=== PATIENT | male | born 1975 | race Caucasian/White ===

== ENCOUNTER 2018-09-29 18:10 | Outpatient (CLI) | payer OTHER ==
--- NOTE | 2018-09-30 09:22 | MRI Report ---
Reason: LOCALIZED EDEMA, SYNOVIAL CYST OF [place] SPACE Procedure Date: 09/29/2018 Accession Number: [id number] / [id number] Procedure: MRI - Knee LT W/O CPT Code: FULL RESULT: EXAM: LEFT KNEE MRI WITHOUT CONTRAST EXAM DATE: 09/29/2018 07:02 PM. CLINICAL HISTORY: LOCALIZED EDEMA, SYNOVIAL CYST OF [place] SP[place]. COMPARISON: None. TECHNIQUE: Multiplanar, multisequence T1-weighted and fluid-sensitive sequences of the knee without contrast. Other: None. FINDINGS: Cruciate ligaments: The anterior and posterior crucial he was very intact. Medial meniscus: Small amount of intrasubstance degeneration. No tear identified. Lateral meniscus: Small amount of intrasubstance degeneration. Thickening and heterogenous signal at the root of the anterior horn. Cystic structure associated with the root of the anterior horn measuring 1.6 x 1.7 x 1.2 cm containing low signal as well as small ossified bodies. Collateral ligaments: The medial and fibular collateral units appear intact. Bones and articular surfaces: Severe cartilage thinning, irregularity and fissuring throughout the weightbearing medial femoral condyle. Mild coarsening at the posterior aspect of the lateral femoral condyle. Patellofemoral compartment without significant defect. Loose body within the suprapatellar recess that measures 2.1 x 0.9 x 1.7 cm. Small joint effusion. Extensor mechanism: The patellar tendon and quadriceps insertion appear intact. IMPRESSION: 1. Ill-defined complex tear and degeneration at the root of the anterolateral meniscus with lobulated cyst that appears to contain a cluster of small calcified and ossified bodies measuring up to 0.6 cm. Overall dimensions 2.1 x 0.9 x 1.7 cm. 2. Severe cartilage loss and subchondral bone changes at the lateral femoral condyle. 3. Suprapatellar loose body measuring up to 2.1 cm. RADIA MUSCULOSKELETAL RADIOLOGY SECTION
== END 2018-09-29 18:11 | disposition home or self-care (01) ==
LOC: DI 18:10
PROVIDERS: ATTEND Physician Assistant
DX: S83.272A Complex tear of lateral meniscus, current injury, left knee, initial encounter (principal); M25.862 Other specified joint disorders, left knee; M23.92 Unspecified internal derangement of left knee; M23.42 Loose body in knee, left knee; M89.9 Disorder of bone, unspecified

== ENCOUNTER 2023-04-16 08:44 | Outpatient (CLI) | payer OTHER ==
--- NOTE | 2023-04-16 09:11 | Sleep Patient Instructions ---
Sleep Center Visit Summary - Patient Visit Information Reason for Visit: Initial consult for evaluation of sleep disordered breathing and other sleep issues. - Patient Instructions Instructions Attached: Sleep Study, Sleep Clinic Visit, Sleep Study Home Monitor Additional Instructions: You will be completing a sleep study, either an in-lab polysomnography (PSG) or home sleep study (HST). You will follow-up in the sleep care office after the sleep study is completed to hear the results and talk about therapy, if needed. You will be called by our office staff to schedule this appointment, but you may contact us with any questions. - Clinic Information Contact: [facility] [address] [place] [address] [email or web address] T: [phone]
--- NOTE | 2023-04-16 09:15 | SLEEP CARE CONSULTATION ---
Information from patient questionnaire entered by Burke Smith. I have reviewed and concur with the information entered by Burke Smith. This document represents the service I personally performed and the decisions made by me, Adamaris Nelson ARNP. History of Present Illness Service Date and Time: 04/16/2023 0844 Reason for Visit: New patient Chief Complaint: reports: Unrefreshed sleep, Excessive daytime sleepiness Date of Onset: 3 years Usual bedtime: 10-1030PM Time it takes to fall asleep: 20-60MIN, will sometimes take melatonin to help get to sleep Snores at night: Yes Observed to quit breathing while asleep: No Sleeps alone due to snoring: No Number of times waking at night: 2 Reasons for waking at night: reports: Choking, Snoring, Gasping for air, Bathroom Toss, Turn, or Twitch while sleeping: No Recalls having dreams: No Usually gets out of bed at: 540AM; weekends 0800 Feels refreshed in the morning: No Morning headache: No Sleepy or fatigued during the day: Yes Ever fallen asleep while driving: No Takes day naps: No Dreams during day naps: No Prior sleep studies: No Additional HPI information: I had the pleasure of seeing DONNA MAHMOOD today regarding the possibility of him having a sleep disorder. His current complaints are unrefreshed sleep and excessive daytimes sleepiness. He states for the last few years he has noticed daytime fatigue. He knows he snores. He has woke up gasping for air, feeling like he is choking and snoring. He does not remember dreaming and wakes up feeling tired. - Parasomnia Symptoms Ever been unable to move upon waking from sleep: Yes (nothing recent) Walks in sleep: No Talks in sleep: No Ever acted out dreams in sleep: No Ever felt weak in the knees when startled or emotional: No Bothered by creepy, crawly, restless sensations in legs: No Problems with memory or concentration: Yes (both, memory worse) Subjective Initial [place] Sleepiness Scale score: 9 (04/16/23) Past Medical History Past Medical History: reports: Other (2018, L knee scope/procedure) Social History The patient's occupation is a AM. Patient is and lives in [place]. Have you smoked in the past 12 months: Yes (vaping) Years of smokin Quit date: 2016 Alcohol use: Yes Alcohol amount and frequency: 6-12 PACK BEER ON WEEKENDS Caffeine use: Yes Caffeine amount and frequency: HALF POT COFFEE every day Family History Family history of sleep disordered breathing: Yes Family Hx Sleep Apnea: Mother: Snoring, Grandparent: Snoring Allergies and Home Medications Known drug allergies: No Drug allergies reviewed: Yes Home medication list reviewed: Yes (no daily medications) Allergy and home medication list: Allergies No Known Drug Allergies Allergy (Verified 04/15/23 09:15) Review of Systems Cardiovascular: denies: high blood pressure Gastrointestinal: reports: heartburn Neurological: denies: headaches, head trauma Psychiatric: reports: anxiety. denies: depression Ear/Nose/Throat: reports: dry mouth/throat. denies: injury to nose, t onsillectomy Endocrine: reports: sluggishness, too hot or cold Musculoskeletal: reports: joint pain, back pain Immunologic: reports: sneezing, itching, allergies to food or environment (sometimes spring allergies) Physical Exam Vital signs obtained and entered by: BURKE Brasher MA Blood Pressure: 136/82 (LEFT ARM) Cuff size: regular Heart Rate: 81 O2 Saturation: 98 Height: 6 ft 1 in Weight: 203 lb 3.2 oz Body Mass Index: 26.8 BMI Classification: Overweight Neck circumference: 15.5 Mouth and throat: narrow oropharynx Soft palate: long Hard palate: arched Uvula: normal Uvula visualization: 100% Mallampati Class I Tongue: enlarged in size with teeth saldana on lateral edges Tonsils: 1+ Neck: normal w/o lymphadenopathy or thyromegaly Heart: regular rate and rhythm Lungs: clear bilaterally Impression and Plan 1. Suspected Obstructive Sleep Apnea-Hypopnea Syndrome, as suggested by a history of loud and irregular snoring, gasping or choking in sleep, unrefreshed sleep, cognitive impairment, and excessive daytime sleepiness. Narrow oropharynx and obesity are common predisposing factors for obstructive sleep apnea-hypopnea syndrome. I recommend proceeding to polysomnography to confirm the diagnosis and to assess severity. If the patient has significant sleep disordered breathing, a manual CPAP titration study will also be performed to find the optimal treatment pressure. I informed the patient of what the sleep studies involve and after some discussion, obtained agreement to proceed. The pathophysiology of obstructive sleep apnea-hypopnea syndrome was discussed with the patient and health risks of cardiovascular and cerebrovascular disease if not treated. Risks of drowsy driving discussed in detail and patient advised to avoid long distance driving and to taffy puller at the first sign of drowsiness. Patient agreed to plan. * Schedule polysomnography +- manual CPAP titration study and return in 1-2 weeks after the study to discuss result and initiate therapy. * Avoid long distance driving or driving when feeling sleepy. * Avoid alcohol, sedative and muscle relaxant around bedtime. * Attempt to lose weight. * Review instructions provided by trained office staff on how to prepare for the sleep study. * Return for follow-up after sleep study completed. Counseling Topics: Weight loss health impact Visit Type: In Office Time Spent with Patient (minutes): 32 Provider Statement: I spent 100% of the Face to Face Visit with the patient with greater than 50% spent counseling the patient and coordination of care.
[2023-04-16 09:16] VITALS: BP 136/82
== END 2023-04-16 08:45 | disposition home or self-care (01) ==
LOC: SC 08:44
PROVIDERS: ATTEND Nurse Practitioner Family
DX: R06.83 Snoring (principal); G47.8 Other sleep disorders; G47.10 Hypersomnia, unspecified; E66.3 Overweight; Z68.26 Body mass index [BMI] 26.0-26.9, adult; F17.290 Nicotine dependence, other tobacco product, uncomplicated
CPT/HCPCS: 99203; 99212

== ENCOUNTER 2023-05-18 19:35 | Outpatient (CLI) | payer OTHER | END 2023-05-18 19:36 | disposition home or self-care (01) | LOC: SC 19:35 | PROVIDERS: ATTEND Nurse Practitioner Family | DX: G47.33 Obstructive sleep apnea (adult) (pediatric) (principal) | CPT/HCPCS: 95810 ==

== ENCOUNTER 2023-06-16 09:05 | Outpatient (CLI) | payer OTHER ==
--- NOTE | 2023-06-16 09:27 | Sleep Patient Instructions ---
Sleep Center Visit Summary - Patient Visit Information Reason for Visit: Sleep study followup - Patient Instructions Instructions Attached: CPAP Dc, CPAP Additional Instructions: You are being started on CPAP therapy with pressure setting at 4-15 cmH2O. You will need to call the sleep care office to set up your follow up once you have your APAP machine and we will schedule a visit to check compliance and response to therapy at that time. You may call the office with any concerns about pressure feeling too low or too much for adjustment, if needed. You should contact DME for any questions or concerns about mask or equipment. Please call to schedule a follow up in the sleep care office one month after obtaining new CPAP. - Clinic Information Contact: [facility] [address] [place] [address] [email or web address] T: [phone]
--- NOTE | 2023-06-16 09:32 | SLEEP CARE CONSULTATION ---
Information from patient questionnaire entered by Alee Smith. I have reviewed and concur with the information entered by Aele Smith. This document represents the service I personally performed and the decisions made by me, Adamaris Nelson ARNP. History of Present Illness Service Date and Time: 06/16/2023904 Initial [place] Sleepiness Scale score: 9 (04/16/23) Current [place] Sleepiness Scale score: 11 (06/16/23) Additional HPI information: DONNA MAHMOOD returns for follow up and results of the recently performed polysomnography. His PSG shows moderate obstructive sleep apnea with an average AHI of 23.9 and dayna oxygen saturation of 82%. I explained the pathophysiology behind obstructive sleep apnea. We then spent quite a bit of time discussing different treatment options. For mild obstructive sleep apnea, surgery and oral appliance are alternatives to nasal CPAP therapy but in moderate or severe cases, nasal CPAP is the most effective and reliable treatment. Because apnea is primarily in supine position, then positional management therapy could be effective. Methods discussed such as positioning with pillows, using a T-shirt with tennis balls in the back or commercial products that have a pillow format on back to prevent supine sleep. I reviewed the impact of weight changes on sleep apnea and strongly recommended losing weight. After some discussion, the patient opted to go with the nasal CPAP therapy. Nasal autoCPAP set at 4-15 cmH20 will be ordered with rationale explained. A manual titration study will be ordered if unable to find optimal pressure with office adjustments. I explained how CPAP machine works and what to expect when using the machine. Using CPAP every night in order to get used to it was emphasized. Patient advised to put CPAP mask on before getting into bed so as not to fall asleep without CPAP. To assist acclimation to CPAP use, it could also be used for a short time during day while reading or watching TV. The patient was instructed to call the CPAP supplier to discuss any mechanical problem that may occur. If the mask given is uncomfortable or is difficult to keep on through the night even with adjustment, contact the CPAP supplier as many will replace with another mask style if notified before 30 days. If snoring or perceives is not getting enough air or too much air from the machine, notify this office. Patient counseled not drink alcohol less than 4 hours before bedtime as it can increase snoring and apnea. Patient was cautioned about risks of drowsy driving until sleepiness symptoms resolve. Patient denies drowsy driving. Sleep Study - Results Type of Sleep Study: Polysomnography (COMPLETED 05/18/23) Prior sleep studies: No Polysomnography/Home Sleep Study results: IMPRESSION: The quality of the study is good. The patient had normal sleep efficiency. The sleep architecture was abnormal for sleep fragmentation and reduced amount of time spent in slow wave sleep (N3). Respiratory monitoring showed moderate obstructive sleep apnea-hypopnea (AHI = 23.9) associated with frequent arousals, oxyhemoglobin desaturation and mild hypoxia (dayna oxygen saturation of 82%). The respiratory events occurred almost exclusively during supine sleep (supine AHI = 52.3; non-supine = 1.08). Snore was moderate in intensity. There was no significant periodic leg movement of sleep. Cardiac rhythm was normal sinus rhythm without significant arrhythmia. No abnormal behavior (parasomnia) observed during the night. Allergies and Home Medications Known drug allergies: No Drug allergies reviewed: Yes Home medication list reviewed: Yes (no changes) Allergy and home medication list: Allergies No Known Drug Allergies Allergy (Verified 06/15/23 13:38) Review of Systems Review of systems same as previous: Yes (no changes) Physical Exam Vital signs obtained and entered by: ALEE Brasher MA Blood Pressure: 128/78 (LEFT ARM) Cuff size: regular Heart Rate: 87 O2 Saturation: 98 Height: 6 ft 1 in Weight: 204 lb 6.4 oz Body Mass Index: 26.9 BMI Classification: Overweight Impression and Plan 1. Obstructive Sleep Apnea-Hypopnea Syndrome, moderate, with lowest oxygen saturation of 82%. Obviously this is the cause of the patients symptoms of unrefreshed sleep, and excessive daytime sleepiness. As mentioned above, the patient will be started on nasal autoCPAP therapy with pressure set at 4-15 cmH2 O. A manual titration study will be completed if unable to find optimal treatment pressure with office adjustments. Compliance guidelines also reviewed. A copy of compliance guidelines will be given for reference at check out. Because the apnea is more severe supine, I instructed to avoid sleeping supine using pillow positioning until able to start CPAP use. 2. Hypoxemia, mild, with a dayna oxygen saturation of 82% and 5.8 minutes spent under 90%. His baseline oxygen saturation was normal with an average oxygen saturation of 94%. 3. Overweight, unspecified. Currently patients BMI is 26.9. Obesity increases the risk of apnea, CPAP pressure requirements and overall health risks especially cardiovascular and diabetes. Thus patient is advised to lose weight. * Nasal auto CPAP therapy, pressure at 4-15 cm H2O. * Attempt to lose weight. * Avoid alcohol consumption near bedtime. * Avoid supine sleep until using CPAP. * The patient is again cautioned about driving until sleepiness completely resolves. * Return one month after CPAP obtained. I will assess response to therapy and compliance at that time. Counseling Topics: Weight loss health impact Visit Type: In Office Time Spent with Patient (minutes): 20 Provider Statement: I spent 100% of the Face to Face Visit with the patient with greater than 50% spent counseling the patient and coordination of care.
[2023-06-16 09:33] VITALS: BP 128/78
== END 2023-06-16 09:06 | disposition home or self-care (01) ==
LOC: SC 09:05
PROVIDERS: ATTEND Nurse Practitioner Family
DX: G47.33 Obstructive sleep apnea (adult) (pediatric) (principal); R09.02 Hypoxemia; E66.3 Overweight; Z68.26 Body mass index [BMI] 26.0-26.9, adult
CPT/HCPCS: 99212; 99213